=== PATIENT | female | born 1945 | race Caucasian/White ===

== ENCOUNTER → 2016-12-30 | Outpatient (CLI) | payer MEDICARE, BC ==
[~2016-12-30] MED LIST: CYCL1DRO EACHEYE
--- NOTE | 2016-12-30 11:53 | RAD ---
Indication screening for osteoporosis. The lumbar spine and right hip were evaluated. Note is made of a previous examination 07/30/2011. In the lumbar spine the average bone mineral density is approximately 1 g/cc. The T score of -1.4 is indicative of osteopenia. In the right hip the average bone mineral density is 0.92 g/cc. The T score of -0.7 is within normal limits. (Note is made that the neck of the right femur has a bone mineral density of 0.82 g/cc and the T score is -1.8) IMPRESSION: Osteopenic lumbar spine
== END | disposition home or self-care (01) ==
LOC: DXRAD 10:27
PROVIDERS: ATTEND Family Medicine
DX: Z13.820 Encounter for screening for osteoporosis (principal); M85.88 Other specified disorders of bone density and structure, other site
CPT/HCPCS: 77080